=== PATIENT | male | born 1955 | race Caucasian/White ===

== ENCOUNTER 2024-04-19 09:42 | Observation (INO) ==
--- NOTE | 2024-04-19 10:33 | Emergency Department Note ---
Impression & Plan Complication of Farias catheter, Hematuria, Acute UTI (urinary tract infection) ED Provider Note ED Provider Note NAME: TAWANA COX AGE:69 SEX: Male : 1955 ARRIVES VIA: Private vehicle INFORMANT: Patient ED PROVIDER(s): Yajaira Mendoza DO CHIEF COMPLAINT: Clogged Farias catheter, blood clots HPI: This is a 69-year-old male presents emergency department due to concern for a clogged Farias catheter and blood clots. Patient is had an indwelling catheter since the beginning of the week that was placed initially for acute urinary retention. He did present last night in the emergency department due to concern for passage of a clot followed by gross hematuria noted in the bag. Catheter last night was able to be flushed and aspirated with ease, he drained after irrigation and a light pink color. No further passage of clots. He states overnight while wearing the larger catheter bag he did notice a few clots however urine otherwise was only pink-tinged. He states this morning around 6 AM he changed to the leg bag and since that time has had gross hematuria, further clots, and he is now no longer draining and is developing a sense of fullness in his lower abdomen. No fevers or chills, no nausea or vomiting. Patient does not use any antiplatelet or anticoagulation medication. Patient is frustrated as he has been here several times this week and is not scheduled to see urology until Monday. PAST MEDICAL HISTORY:See Below PAST SURGICAL HISTORY:See Below FAMILY HISTORY:See Below SOCIAL HISTORY:See Below HOME MEDICATIONS:See Below ALLERGIES:See Below VITALS:See Below PHYSICAL EXAMINATION: GENERAL: alert, well appearing, well nourished, no distress, non-toxic EYE EXAM: normal conjunctiva, PERRL and EOM's grossly intact LUNGS: Clear to auscultation. Normal chest wall mechanics, no w/r/r HEART: no murmurs, S1 normal and S2 normal ABDOMEN: abdomen soft, non-tender, normo-active bowel sounds, no masses, no rebound or guarding. SKIN: no rashes, petechiae, orbruising UPPER EXTREMITIES: upper extremities are grossly normal. FROM, nml pulses b/l. LOWER EXTREMITIES: No pitting edema. FROM, nml pulses b/l. NEURO EXAM: Normal sensorium, cranial nerves II-XII grossly intact, normal speech, no facial droop,nogross weakness of arms, no gross weakness of legs. Gross sensation intact. No ataxia. Vital Signs: reviewed and remarkable Differential Diagnosis: Catheter malfunction, obstruction, dehydration, urinary tract infection, urinary retention, acute kidney injury, as well as other pathologies. MEDICAL DECISION MAKING: This is a 69-year male presents emergency department for the fourth time this week due to concern for hematuria and complications related to his Farias catheter. He was afebrile vital signs stable. Patient catheter unable to be flushed and aspirated, so a new Farias catheter was placed. Patient continued to complain of lower abdominal pain and had leakage of blood and blood clots out around the Farias catheter. We did attempt to irrigate this at bedside however had minimal return of the fluid. Bedside ultrasound performed by me showed a large amount of debris which I suspect is blood and clots noted in the bladder, the balloon was seen and appears in normal position. Patient did have labs last night which were reassuring. I did contact urology who recommended repeat imaging. Repeat labs drawn and sent after patient had a vagal episode and had become hypotensive following this exchange. His pressure came up quickly and he continued to be well-appearing. Repeat labs show mild drop in hemoglobin compared to yesterday, no evidence of DEMARIO. Preliminary urine culture from urine that was sent last night did show gram-negative bacilli, patient was given 1 dose of oral ciprofloxacin. Patient sent for repeat CAT scan of the abdomen and pelvis following discussion with urology. They were updated when this was read as well as updated on the labs. They did come and see the patient at bedside and plan to take the patient to the OR for additional intervention. They did ask for medicine to admit him as he will need to be observed overnight in the hospital. Case discussed with the hospitalist team for additional evaluation and management. Consultation(s): 1240: Discussed with Yamilet Yan NP, with urology. They would like repeat imaging. 1528: Discussed with Dr. Sierra, [facility] hospitalist team. ER Treatment Provided: See below 1150: I reentered the room to recheck the status of the patient's Farias catheter drainage and update him on the use of Cipro and patient was hypotensive complaining of dizziness. I recycled the blood pressure and he was still hypotensive. I asked the nurse to start an IV and I spiked a liter bag of IV fluids. Diagnostics Interpreted By Me: -Cardiac Monitoring: An order was placed for continuous cardiac monitoring. The monitor shows a rate of 70 with normal sinus rhythm. -Laboratory studies: As stated above and show below. -IMaging: CT A/P: Debris noted in the bladder, catheter present, no hydro Triage Nursing Note Reviewed Prior/Outside Records Reviewed -prior CT imaging reviewed Past Med/Surg History Problem List (Updated 04/19/24 @ 17:56 by Yajaira Mendoza, ) Acute UTI (urinary tract infection) (Acute) Indwelling Farias catheter present (Acute) Hematuria (Acute) Complication of Farias catheter (Acute) Hypertension (Acute) Acute retention of urine (Acute) Arm pain Arm weakness Tinnitus Hearing loss Medical History Ankle fracture Surgical History S/P tonsillectomy H/O umbilical hernia repair S/P appendectomy S/P hernia repair Family History Mother No pertinent family history Father No pertinent family history Social History Smoking Status: Unknown if ever smoked Tobacco Type: Cigarettes Preferred Language: Romanian Feels Safe at Home: Yes Allergies Allergies Allergy/AdvReac Type Severity Reaction Status Date / Time amoxicillin [From Augmentin] AdvReac PATIENT Verified 04/19/24 16:05 GETS C-DIFF aspirin AdvReac EARS RING Verified 04/19/24 16:05 clavulanic acid AdvReac PATIENT Verified 04/19/24 16:05 [From Augmentin] GETS C-DIFF NSAIDS (Non-Steroidal AdvReac EARS RING Verified 04/19/24 16:05 Anti-Inflamma DIURETICS AdvReac EARS RING Uncoded 04/19/24 16:05 HISTAMINES AdvReac EARS RING Uncoded 04/19/24 16:05 Home Meds Home Medications Medication Instructions Recorded Confirmed Saccharomyces boulardii 250 mg 250 mg PO QAM 05/17/21 04/19/24 capsule (Daily Probiotic (S. boulardii)) atenolol 25 mg tablet 25 mg PO QAM 05/17/21 04/19/24 cholecalciferol (vitamin D3) 25 25 mcg PO QAM 05/17/21 04/19/24 mcg (1,000 unit) capsule ketoconazole 2 % topical cream 1 applic topical BID PRN FLARE 05/17/21 04/19/24 losartan 100 mg tablet (Cozaar) 100 mg PO QAM 05/17/21 04/19/24 Aged Garlic 2 cap PO BID 04/19/24 04/19/24 alprazolam 1 mg tablet 1 mg PO TID PRN Anxiety 04/19/24 04/19/24 magnesium 250 mg tablet 250 mg PO QAM 04/19/24 04/19/24 omega 4-zce-gzp-fish oil 1,000 mg 1 cap PO QAM 04/19/24 04/19/24 (120 mg-180 mg) capsule (Fish Oil) zinc gluconate 50 mg tablet 50 mg PO QAM 04/19/24 04/19/24 Results & Data (ED) Vital Signs Vital Signs - 24 hr 04/19/24 09:50 04/19/24 12:18 04/19/24 13:03 Temperature 36.3 C L Temperature Source Oral Pulse Rate 69 56 L Pulse Rate [Apical] 82 Pulse Rhythm Regular Pulse Strength Normal Respiratory Rate 20 16 Respiratory Effort / Characteristics Non-Labored Spontaneous Respiratory Depth Normal Respiratory Pattern Regular Blood Pressure 107/73 Blood Pressure [Left Arm] 111/71 Blood Pressure Mean 84 Blood Pressure Mean [Left Arm] 84 Blood Pressure Position [Left Arm] Pulse Oximetry 99 95 Oxygen Delivery Method Room Air Sepsis Recent Fever Within 48 Hours No Sepsis New/Unexplained Change in Mental Status N/A Sepsis Action Taken by Nursing No Action Required 04/19/24 13:51 04/19/24 15:42 04/19/24 16:47 Temperature Temperature Source Pulse Rate 62 Pulse Rate [Apical] 66 58 L Pulse Rhythm Pulse Strength Respiratory Rate 14 18 16 Respiratory Effort / Characteristics Respiratory Depth Respiratory Pattern Blood Pressure 139/85 Blood Pressure [Left Arm] 114/71 127/68 Blood Pressure Mean Blood Pressure Mean [Left Arm] 85 87 Blood Pressure Position [Left Arm] Pulse Oximetry 99 100 100 Oxygen Delivery Method Room Air Sepsis Recent Fever Within 48 Hours Sepsis New/Unexplained Change in Mental Status Sepsis Action Taken by Nursing 04/19/24 16:56 Temperature 36.5 C Temperature Source Oral Pulse Rate Pulse Rate [Apical] Pulse Rhythm Pulse Strength Respiratory Rate 16 Respiratory Effort / Characteristics Non-Labored Spontaneous Respiratory Depth Normal Respiratory Pattern Regular Blood Pressure Blood Pressure [Left Arm] 144/97 H Blood Pressure Mean Blood Pressure Mean [Left Arm] 112 Blood Pressure Position [Left Arm] Lying Pulse Oximetry 100 Oxygen Delivery Method Room Air Sepsis Recent Fever Within 48 Hours Sepsis New/Unexplained Change in Mental Status Sepsis Action Taken by Nursing Laboratory Data 04/19/24 12:30 04/19/24 12:30 Lab Results 04/19/24 Range/Units 12:30 WBC 12.65 H (4.8-10.8) K/ul RBC 3.89 L (4.70-6.10) M/uL Hgb 13.1 L D (14.0-18.0) g/dl Hct 36.2 L (42.0-52.0) % MCV 93.1 (80.0-100.0) fL MCH 33.7 (25.0-34.0) pg MCHC 36.2 H (32.0-36.0) g/dL RDW Std Deviation 42.2 (36.4-46.3) fL RDW Coeff of Latasha 12.3 (11.5-14.5) % Plt Count 268 (130-400) K/uL MPV 8.6 L (9.4-12.4) fL Immature Gran % (Auto) 0.5 % Neut % (Auto) 89.4 % Lymph % (Auto) 5.3 % [place] % (Auto) 4.6 % Eos % (Auto) 0.0 % Baso % (Auto) 0.2 % Neut # (Auto) 11.32 H (1.40-6.50) K/uL Lymph # (Auto) 0.67 L (1.20-3.40) K/uL [place] # (Auto) 0.58 (0.11-0.59) K/uL Eos # (Auto) 0.00 (0.00-0.50) K/uL Baso # (Auto) 0.02 (0.00-0.20) K/uL Immature Gran # (Auto) 0.06 (0.01-0.20) K/uL Sodium 126 L (136-145) mmol/L Potassium 4.9 (3.5-5.1) mmol/L Chloride 96 L (98-107) mmol/L Carbon Dioxide 24 (21-32) mmol/L Anion Gap 6 (3-11) BUN 10 (6-23) mg/dl Creatinine 1.00 (0.6-1.4) mg/dl Est Cr Clr Drug Dosing 73.9 ml/min eGFR 81.98 BUN/Creatinine Ratio 10.0 (10-20) Glucose 129 H (70-99(Fasting)) mg/dl Calcium 8.6 (8.6-10.3) mg/dl Magnesium 1.6 L (1.7-2.4) mg/dl Total Bilirubin 1.1 H (0.2-1.0) mg/dl AST 15 (13-39) U/L ALT 17 (7-52) U/L Alkaline Phosphatase 47 (34-104) U/L Total Protein 6.2 (6.0-8.3) gm/dl Albumin 3.8 (3.4-5.0) gm/dl Globulin 2.4 L (2.5-4.0) gm/dl Albumin/Globulin Ratio 1.6 (0.9-2) Administered Medications Discontinued Medications Ciprofloxacin (Ciprofloxacin 500 Mg Tab) 500 mg PO NOW STA; Protocol Stop: 04/19/24 10:35 Last Admin: 04/19/24 11:48 Dose: 500 mg Documented By: ESTEBAN Sodium Chloride (Nss) 1,000 mls @ 999 mls/hr IV .Q1H1M ONE Stop: 04/19/24 13:12 Last Infusion: 04/19/24 13:33 Dose: Infused Documented By: Admin: 04/19/24 12:29 Dose: 999 mls/hr Documented By: ESTEBAN Acetaminophen (Ofirmev) 1,000 mg in 100 mls @ 400 mls/hr IV NOW STA Stop: 04/19/24 14:48 Last Infusion: 04/19/24 15:08 Dose: Infused Documented By: Admin: 04/19/24 14:44 Dose: 400 mls/hr Documented By: ESTEBAN Imaging Data Radiologist's Impression: Abdomen/Pelvis CT 04/19/24 12:[address] WITHOUT CONTRAST CT DOSE: 1293.98 mGy.cm HISTORY: Acute hematuria debris/clots in bladder TECHNIQUE: Multiaxial CT images of the abdomen and pelvis were performed without contrast. A dose lowering technique was utilized adhering to the principles of ALARA. COMPARISON STUDY: 04/14/2024 FINDINGS: Clear lung bases. No free air. The unenhanced spleen is unremarkable and unchanged 11 mm lobular nodular focus on image 105 series 3. Unremarkable pancreas and adrenal glands. Cholelithiasis. Unremarkable liver. Bilateral perinephric stranding with resolution of the hydronephrosis. There are a few nonobstructing calculi noted bilaterally measuring up to approximately 3 mm. No ureteral calculi identified. Distended urinary bladder with Farias catheter in place. Heterogeneous hyperdense debris fills the urinary bladder lumen and there is also a small amount of nondependent air. Marked prostatomegaly. Atherosclerosis of the aorta. No lymphadenopathy. The bladder measures up to 14 cm in length. No bowel obstruction or bowel wall thickening. Colonic diverticulosis. The appendix is reportedly surgically absent. No acute fracture. IMPRESSION: 1. Farias catheter is noted within the distended hemorrhagic debris filled urinary bladder. Associated prostatomegaly. 2. Nonobstructing bilateral nephrolithiasis. No hydronephrosis. 3. No bowel obstruction or bowel wall thickening. 4. Cholelithiasis. ACT 112: Negative or not required by law. The above report was generated using voice recognition software. It may contain grammatical, syntax or spelling errors. Electronically signed by: Easton Murrieta M.D. 04/19/2024 1:57 PM Discharge Plan Visit Data Chief Complaint: Hematuria Stated Complaint: CATHETER ISSUES, CLOTS, HEMATURIA ED Provider: Yajaira Mendoza Discharge Problem: Complication of Farias catheter, Hematuria, Acute UTI (urinary tract infection) Discharge Instructions Interventions: ED Discharge Assessment Last Done: 04/19/24 16:47 Forms Stand Alone Forms: [facility] Prescriptions Prescriptions: No Action atenolol 25 mg tablet 25 mg PO QAM losartan [Cozaar] 100 mg tablet 100 mg PO QAM ketoconazole 2 % cream 1 applic topical BID PRN (Reason: FLARE) Saccharomyces boulardii [Daily Probiotic (S. boulardii)] 250 mg capsule 250 mg PO QAM cholecalciferol (vitamin D3) 25 mcg (1,000 unit) capsule 25 mcg PO QAM alprazolam 1 mg tablet 1 mg PO TID PRN (Reason: Anxiety) omega 6-wum-ufs-fish oil [Fish Oil] 1,000 (120-180) mg Capsule 1 cap PO QAM zinc gluconate 50 mg Tablet 50 mg PO QAM magnesium 250 mg Tablet 250 mg PO QAM Aged Garlic 2 cap PO BID Referrals Referrals: Luis Freire [Primary Care Provider] -
[2024-04-19] MEDS: CIPROFLOXACIN 500 MG TAB PO STA (11:48)
[2024-04-19] MEDS: SODIUM CHLORIDE 0.9% 1,000 ML IV ONE (12:29)
[2024-04-19 12:46] LABS: Basophils # (auto) 0.02 K/uL (0.00-0.20); Basophils % (auto) 0.2 %; Hematocrit (blood only) 36.2 % (42.0-52.0); Hemoglobin 13.1 g/dl (14.0-18.0); Immature Granulocytes # (auto) 0.06 K/uL (0.01-0.20); Immature Granulocytes % (auto) 0.5 %; Lymphocytes # (auto) 0.67 K/uL (1.20-3.40); Lymphocytes % (auto) 5.3 %; Mean Corpuscular Hemoglobin 33.7 pg (25.0-34.0); Mean Corpuscular Hgb Conc 36.2 g/dL (32.0-36.0); Mean Corpuscular Volume 93.1 fL (80.0-100.0); Mean Platelet Volume 8.6 fL (9.4-12.4); Monocytes # (auto) 0.58 K/uL (0.11-0.59); Monocytes % (auto) 4.6 %; Neutrophils # (auto) 11.32 K/uL (1.40-6.50); Neutrophils % (auto) 89.4 %; Platelet Count 268 K/uL (130-400); RDW Coefficient of Variation 12.3 % (11.5-14.5); RDW Standard Deviation 42.2 fL (36.4-46.3); Red Blood Count 3.89 M/uL (4.70-6.10); White Blood Count 12.65 K/ul (4.8-10.8)
[2024-04-19 13:05] LABS: Albumin Globulin Ratio 1.6 (0.9-2); Albumin Level 3.8 gm/dl (3.4-5.0); Bilirubin,Total 1.1 mg/dl (0.2-1.0); Calcium 8.6 mg/dl (8.6-10.3); Creatinine Clr Calc Pharmacy 73.9 ml/min; Globulin 2.4 gm/dl (2.5-4.0); Potassium 4.9 mmol/L (3.5-5.1); Total Protein 6.2 gm/dl (6.0-8.3)
--- NOTE | 2024-04-19 13:58 | CT Scan Report ---
ABDOMEN AND PELVIS CT WITHOUT CONTRAST CT DOSE: 1293.98 mGy.cm HISTORY: Acute hematuria debris/clots in bladder TECHNIQUE: Multiaxial CT images of the abdomen and pelvis were performed without contrast. A dose lo wering technique was utilized adhering to the principles of ALARA. COMPARISON STUDY: 04/14/2024 FINDINGS: Clear lung bases. No free air. The unenhanced spleen is unremarkable and unchanged 11 mm lo bular nodular focus on image 105 series 3. Unremarkable pancreas and adrenal glands. Cholelithiasis. Unremarkable liver. Bilateral perinephric stranding with resolution of the hydronephrosis. There are a few nonobstructing calculi noted bilaterally measuring up to approximately 3 mm. No ureteral calculi identified. Disten ded urinary bladder with Farias catheter in place. Heterogeneous hyperdense debris fills the urinary b ladder lumen and there is also a small amount of nondependent air. Marked prostatomegaly. Atheroscler osis of the aorta. No lymphadenopathy. The bladder measures up to 14 cm in length. No bowel obstruction or bowel wall thickening. Colonic diverticulosis. The appendix is reportedly kerry gically absent. No acute fracture. IMPRESSION: 1. Farias catheter is noted within the distended hemorrhagic debris filled urinary bladder. Associated prostatomegaly. 2. Nonobstructing bilateral nephrolithiasis. No hydronephrosis. 3. No bowel obstruction or bowel wall thickening. 4. Cholelithiasis. ACT 112: Negative or not required by law. The above report was generated using voice recognition software. It may contain grammatical, syntax o r spelling errors. Electronically signed by: Easton Murrieta M.D. 04/19/2024 1:57 PM
[2024-04-19] MEDS: ACETAMINOPHEN 1,000 MG/100 ML VIAL IV STA (14:44)
--- NOTE | 2024-04-19 15:44 | Urology Consultation ---
Date of Consultation April 19, 2024 Assessment & Plan (1) Hematuria: (2) Indwelling Farias catheter present: (3) Acute retention of urine: Plan 69yo male who was seen in the ED this week for urinary retention and had a Farias catheter placed. He has since developed hematuria and was seen in the ED last night and the catheter was flushed. He returned to the ED today due to concerns of catheter obstruction. Afebrile and hemodynamically stable. Labs showing a white count of 12.65, hemoglobin 13.1, and creatinine 1.0. Urine culture from 04/18 is preliminary gram-negative bacilli. Farias intact w/hematuria and clot. We reviewed his CT findings today showing a Farias catheter within a distended hemorrhagic debris-filled urinary bladder and prostatomegaly. We discussed recommendation for OR today for cystoscopy, clot evacuation, and possible fulguration - He is agreeable. Risks and benefits to be reviewed with patient by Dr. Leigh. Patient received oral ciprofloxacin. Keep NPO. Urology to follow. Attending note: Patient independently assessed, examined, interviewed, and evaluated. Agree with note as above. Patient's vitals and labs were all reviewed. Pertinent values in the HPI and plan section. Imaging was reviewed interpreted by myself. Agree with read. Vitals were reviewed. Discussed findings extensively with patient and family. Reviewed with nurse practitioner as well as consulting physicians/team. Patient's complicated medical and surgical history was reviewed and summarized above. Patient's surgical, medical, social, and family history were all reviewed with pertinent values as above. Discussed patient's current diagnosis as well as concerns and issues. Reviewed different options moving forward. Discussed potential risks and benefits as well as possible options and concerns. Reviewed potential surgical options and interventions. Discussed potential issues and concerns related to intervention. Risk and benefits were discussed extensively with patient and any available family. Discussed potential risks related to anesthesia. Discussed risks of bleeding infection and injury. Patient's imaging were thoroughly reviewed by myself patient has a large amount of clot within the bladder. Has significant prostate enlargement. No sign of active bleeding however large amount of clot with likely urine above it. The catheter did appear to be in the bladder however did not appear to be draining well. With the large amount of debris and clot material would likely not be amendable to bedside evacuation also concern for active bleeding in the prostate or in the bladder. Reviewed extensively different options. Discussed risk and benefits. Discussed concerns and issues. Discussed possible reaction to antibiotics and to anesthesia. Discussed risk with patient's known medical history. Discussed risk specifically related to the anesthesia. Reviewed options moving forward. Risks and benefits discussed at length for procedure. These include bleeding, infection, injury to surrounding tissues or organs, and risks associated with anesthesia. Patient states understanding and agrees to proceed. Will sign consent and schedule. Plan for cystoscopy with clot evacuation possible fulguration History of Present Illness History of Present Illness This is a 69-year-old male who presented to the emergency department today due to concern for catheter obstruction and hematuria. Patient was seen in the emergency department earlier this week for urinary retention. CT abdomen pelvis at that time noted an enlarged prostate with a markedly distended bladder and mild bilateral hydronephrosis to the level of the bladder likely secondary to outlet obstruction. A Farias catheter was placed for management of urinary retention and he was discharged home. He has been seen in the 3 additional times this week due to catheter discomfort and hematuria. He did present last seen in the emergency department for hematuria. At that time the catheter was flushed and aspirated with ease and he was discharged home. He returned to the ED today due to catheter obstruction and lower abdominal pain. On arrival, he is afebrile and hemodynamically stable. Labs showing a white count of 12.65, hemoglobin 13.1, and creatinine 1.0. Urine culture from 04/18 is preliminary gram-negative bacilli. Attempts were made to flush the catheter however this was unsuccessful. Patient continued of lower abdominal pain and bladder pressure. He underwent repeat imaging. CT abdomen pelvis today notable for a Farias catheter within a distended hemorrhagic debris-filled urinary bladder, prostatomegaly, nonobstructing bilateral stones, no hydronephrosis. Patient was seen at bedside today. Awake, resting in bed on arrival. No acute distress. Farias intact with hematuria and leakage around the catheter. Has suprapubic tenderness. No f/c/n/v. Received oral Cipro. He is not on anticoagulation. Allergies Allergy/AdvReac Type Severity Reaction Status Date / Time amoxicillin [From Augmentin] AdvReac PATIENT Verified 04/19/24 16:05 GETS C-DIFF aspirin AdvReac EARS RING Verified 04/19/24 16:05 clavulanic acid AdvReac PATIENT Verified 04/19/24 16:05 [From Augmentin] GETS C-DIFF NSAIDS (Non-Steroidal AdvReac EARS RING Verified 04/19/24 16:05 Anti-Inflamma DIURETICS AdvReac EARS RING Uncoded 04/19/24 16:05 HISTAMINES AdvReac EARS RING Uncoded 04/19/24 16:05 Home Medications Medication Instructions Recorded Confirmed Type Saccharomyces boulardii 250 mg 250 mg PO QAM 05/17/21 04/19/24 History capsule (Daily Probiotic (S. boulardii)) atenolol 25 mg tablet 25 mg PO QAM 05/17/21 04/19/24 History cholecalciferol (vitamin D3) 25 25 mcg PO QAM 05/17/21 04/19/24 History mcg (1,000 unit) capsule ketoconazole 2 % topical cream 1 applic topical BID PRN FLARE 05/17/21 04/19/24 History losartan 100 mg tablet (Cozaar) 100 mg PO QAM 05/17/21 04/19/24 History Aged Garlic 2 cap PO BID 04/19/24 04/19/24 History alprazolam 1 mg tablet 1 mg PO TID PRN Anxiety 04/19/24 04/19/24 History magnesium 250 mg tablet 250 mg PO QAM 04/19/24 04/19/24 History omega 7-nih-eob-fish oil 1,000 mg 1 cap PO QAM 04/19/24 04/19/24 History (120 mg-180 mg) capsule (Fish Oil) zinc gluconate 50 mg tablet 50 mg PO QAM 04/19/24 04/19/24 History Patient History Medical History Ankle fracture Surgical History S/P tonsillectomy H/O umbilical hernia repair S/P appendectomy S/P hernia repair Family History Mother No pertinent family history Father No pertinent family history Social History Smoking Status: Unknown if ever smoked Tobacco Type: Cigarettes Preferred Language: Armenian Feels Safe at Home: Yes Review of Systems Review of Systems: All systems reviewed & are unremarkable except as noted in HPI & below Physical Exam Constitutional: no acute distress Respiratory: no respiratory distress and no labored breathing Gastrointestinal (Abdomen): Suprapubic tenderness with palpation. Musculoskeletal: Head/Neck/Chest: normocephalic Skin: No visible rashes or lesions to exposed skin areas Neurologic: moves all extremities and awake Psychiatric: A+Ox3, euthymic affect Genitourinary: Farias intact w/hematuria Results & Data Vital Signs (Past 12 Hours) Vital Signs Temp Pulse Pulse Resp BP BP Pulse Ox 04/19/24 13:51 66 14 114/71 99 04/19/24 13:03 82 16 111/71 95 04/19/24 12:18 56 L 04/19/24 09:50 36.3 C L 69 20 107/73 99 O2 Del Method 04/19/24 13:51 04/19/24 13:03 04/19/24 12:18 04/19/24 09:50 Room Air PG Care Time/CCT Total # of Minutes Spent Total Time Spent with Patient: Total time spent is greater than 50% in coordination of care (as documented) at patient's floor/unit and/or counseling patient: Coding Level of Care Code 07062 INT INP/OBS CARE 3/75MIN Diagnoses Hematuria R31.9 Indwelling Farias catheter present Z97.8 Acute retention of urine R33.8
--- NOTE | 2024-04-19 16:07 | History & Physical Report ---
Date of Service April 19, 2024 Assessment & Plan (1) Hematuria: Plan: Occurred after Farias catheter placement. Infection +/- traumatic. Consult urology for clot evaluation, NPO pending surgical intervention Trend hemoglobin (2) Acute UTI (urinary tract infection): Plan: Ceftriaxone 2g IV - history of severe 6 month c. diff therefore will start vancomycin 125mg PO QAM for prophylaxis which she should continue for the duration of antibiotics and 7 days afterwards Follow up urine culture (3) Acute retention of urine: (4) Complication of Farias catheter: (5) Hyponatremia: Plan: Normal saline @125ml/hr overnight. If not correcting consider urine Na/osm if urine becomes more clear (6) Hypomagnesemia: Plan: Magnesium level 1.6 on admission (7) Acute blood loss anemia: Plan HTN - continue atenolol and losartan Anxiety - continue Xanax, he takes this relatively regularly 2-3 times a day and every morning VTE prophylaxis - SCDs Diet - NPO pending surgery Disposition - admit to PCU Admission and Anticipated Discharge Date Admission Date: April 19, 2024 History of Present Illness Chief Complaint: Blood clots in catheter Primary Care Provider: Luis Tani Adams is a 69-year-old male who presents to the ER due to blood clots in his catheter and therefore unable to pass urine. Initial incident occurred on April 14 when he was unable to pass urine and was noted to be in urine retention in the emergency room confirmed on CT. A Farias catheter was placed and urinalysis did not appear infected at that time. He was discharged from the emergency room. He returned on April 16 with urine leakage around the Farias catheter. This appeared to be from the placement of the sticker of the leg bag causing his penis to be pulled significantly to the left and irritating his urethra. The Farias was otherwise draining well and was not replaced. He returned 2 days later on April 18 with hematuria noted in his Farias catheter bag in addition to passage of a clots. Urine was sent for culture but the Farias catheter appeared to be draining well and he was not anemic therefore he was discharged from the emergency room. No antibiotics were given at this time vasquez micky culture now appears to be growing gram-negative bacilli. He returns today due to increased amount of clots and lower abdominal pain with inability to pass urine through the Farias catheter. He notes having bilateral flank pain for the last couple weeks but appeared much better after the Farias catheter was inserted the first time, however this pain has been gradually returning since. He denies any fever, chills, dysuria. No NSAID use. He denies any significant prostate symptoms prior to urine retention episode requiring his Farias catheter. He took all his morning medications today. Allergies Allergy/AdvReac Type Severity Reaction Status Date / Time amoxicillin [From Augmentin] AdvReac PATIENT Verified 04/19/24 16:05 GETS C-DIFF aspirin AdvReac EARS RING Verified 04/19/24 16:05 clavulanic acid AdvReac PATIENT Verified 04/19/24 16:05 [From Augmentin] GETS C-DIFF NSAIDS (Non-Steroidal AdvReac EARS RING Verified 04/19/24 16:05 Anti-Inflamma DIURETICS AdvReac EARS RING Uncoded 04/19/24 16:05 HISTAMINES AdvReac EARS RING Uncoded 04/19/24 16:05 Home Medications Medication Instructions Recorded Confirmed Type Saccharomyces boulardii 250 mg 250 mg PO QAM 05/17/21 04/19/24 History capsule (Daily Probiotic (S. boulardii)) atenolol 25 mg tablet 25 mg PO QAM 05/17/21 04/19/24 History cholecalciferol (vitamin D3) 25 25 mcg PO QAM 05/17/21 04/19/24 History mcg (1,000 unit) capsule ketoconazole 2 % topical cream 1 applic topical BID PRN FLARE 05/17/21 04/19/24 History losartan 100 mg tablet (Cozaar) 100 mg PO QAM 05/17/21 04/19/24 History Aged Garlic 2 cap PO BID 04/19/24 04/19/24 History alprazolam 1 mg tablet 1 mg PO TID PRN Anxiety 04/19/24 04/19/24 History magnesium 250 mg tablet 250 mg PO QAM 04/19/24 04/19/24 History omega 2-uyb-gld-fish oil 1,000 mg 1 cap PO QAM 04/19/24 04/19/24 History (120 mg-180 mg) capsule (Fish Oil) zinc gluconate 50 mg tablet 50 mg PO QAM 04/19/24 04/19/24 History Past Med/Surg History Problem List (Updated 04/20/24 @ 00:34 by Edwardo Sierra MD) Acute blood loss anemia Hypomagnesemia Hyponatremia Acute UTI (urinary tract infection) (Acute) Indwelling Farias catheter present (Acute) Hematuria (Acute) Complication of Farias catheter (Acute) Hypertension (Acute) Acute retention of urine (Acute) Arm pain Arm weakness Tinnitus Hearing loss Medical History Ankle fracture Surgical History S/P tonsillectomy H/O umbilical hernia repair S/P appendectomy S/P hernia repair Family History Mother No pertinent family history Father No pertinent family history Social History Smoking Status: Never smoker Tobacco Type: Cigarettes Second Hand Exposure: No; Do You Dip or Chew Tobacco: No; Hx Alcohol Use: Yes Alcohol type: beer Hx Substance Use: No Preferred Language: Croatian Communication Ability: Effective Superintendent Ammunition Storage Required: No Beliefs That Will Affect Care: None Current Living Situation: Spouse and Parent Other Information That Helps Us Care for You: No Feels Safe at Home: Yes Safety Concerns: Feels Safe At This Time Assistive Devices: None Review of Systems Review of Systems: All systems reviewed & are unremarkable except as noted in HPI & below Physical Exam Constitutional: WD/WN, vitals as above Respiratory: normal respiratory effort, lungs clear to auscultation Cardiovascular: RRR, no murmur, no edema Gastrointestinal (Abdomen): normal bowel sounds, soft, nontender, no hepatosplenomegaly Skin: no rashes, warm and dry Neurologic: moves all extremities and awake; not confused Psychiatric: A+Ox3, euthymic affect Results & Data Results & Data Vital Signs (Past 12 Hours) Vital Signs Temp Pulse Pulse Resp BP BP Pulse Ox 04/19/24 15:42 58 L 18 127/68 100 04/19/24 13:51 66 14 114/71 99 04/19/24 13:03 82 16 111/71 95 04/19/24 12:18 56 L 04/19/24 09:50 36.3 C L 69 20 107/73 99 O2 Del Method 04/19/24 15:42 04/19/24 13:51 04/19/24 13:03 04/19/24 12:18 04/19/24 09:50 Room Air Laboratory Results Abnormal lab results 04/19/24 Range/Units 12:30 WBC 12.65 H (4.8-10.8) K/ul RBC 3.89 L (4.70-6.10) M/uL Hgb 13.1 L D (14.0-18.0) g/dl Hct 36.2 L (42.0-52.0) % MCHC 36.2 H (32.0-36.0) g/dL MPV 8.6 L (9.4-12.4) fL Neut # (Auto) 11.32 H (1.40-6.50) K/uL Lymph # (Auto) 0.67 L (1.20-3.40) K/uL Sodium 126 L (136-145) mmol/L Chloride 96 L (98-107) mmol/L Glucose 129 H (70-99(Fasting)) mg/dl Total Bilirubin 1.1 H (0.2-1.0) mg/dl Globulin 2.4 L (2.5-4.0) gm/dl Diagnostic Findings ABDOMEN AND PELVIS CT WITHOUT CONTRAST CT DOSE: 1293.98 mGy.cm HISTORY: Acute hematuria debris/clots in bladder TECHNIQUE: Multiaxial CT images of the abdomen and pelvis were performed without contrast. A dose lowering technique was utilized adhering to the principles of ALARA. COMPARISON STUDY: 04/14/2024 FINDINGS: Clear lung bases. No free air. The unenhanced spleen is unremarkable and unchanged 11 mm lobular nodular focus on image 105 series 3. Unremarkable pancreas and adrenal glands. Cholelithiasis. Unremarkable liver. Bilateral perinephric stranding with resolution of the hydronephrosis. There are a few nonobstructing calculi noted bilaterally measuring up to approximately 3 mm. No ureteral calculi identified. Distended urinary bladder with Farias catheter in place. Heterogeneous hyperdense debris fills the urinary bladder lumen and there is also a small amount of nondependent air. Marked prostatomegaly. Atherosclerosis of the aorta. No lymphadenopathy. The bladder measures up to 14 cm in length. No bowel obstruction or bowel wall thickening. Colonic diverticulosis. The appendix is reportedly surgically absent. No acute fracture. IMPRESSION: 1. Farias catheter is noted within the distended hemorrhagic debris filled urinary bladder. Associated prostatomegaly. 2. Nonobstructing bilateral nephrolithiasis. No hydronephrosis. 3. No bowel obstruction or bowel wall thickening. 4. Cholelithiasis. Medications Administered ER medications given: Ciprofloxacin 500 mg p.o. Normal saline 1 L bolus Acetaminophen 1000 mg IV ECG Rate (beats per minute): 58 Rhythm: sinus bradycardia Findings: no acute ischemic change Comparison ECG Date: no prior available Code Status & VTE Plan Code Status Full VTE Prophylaxis Plan VTE Prophylaxis will be ordered: Yes PG Care Time/CCT Total # of Minutes Spent Total Time Spent with Patient: Total time spent is greater than 50% in coordination of care (as documented) at patient's floor/unit and/or counseling patient: Coding Level of Care Code 35201 INT INP/OBS CARE 3/75MIN Diagnoses Gross hematuria R31.0 Hematuria type: gross Acute UTI (urinary tract infection) N39.0 Acute retention of urine R33.8 Complication of Farias catheter T83.9XXA Hyponatremia E87.1 Hypomagnesemia E83.42 Acute blood loss anemia D62 (1) Hematuria Hematuria type: gross Qualified Code(s): R31.0 - Gross hematuria
[2024-04-19] MEDS ORDERED: fentaNYL citrate PF 100 MCG/2 ML VIAL ONE ×2 (17:05→18:07)
[2024-04-19 17:08] LABS: Magnesium 1.6 mg/dl (1.7-2.4)
--- NOTE | 2024-04-19 17:33 | Anesthesiology Consultation ---
Date of Service April 19, 2024 Assessment & Plan Chart Review Chart Review: Acceptable Risk for Surgery Consults Requested none History Surgery Operation Date: 04/19/24 15:50 Proposed Procedures p Cystoscopy, Clot Evacuation, Possible Fulguration - Sukhdev Leigh DO Height/Weight Height: 5 ft 7 in Weight: 85.5 kg Allergies Allergy/AdvReac Type Severity Reaction Status Date / Time amoxicillin [From Augmentin] AdvReac PATIENT Verified 04/19/24 16:05 GETS C-DIFF aspirin AdvReac EARS RING Verified 04/19/24 16:05 clavulanic acid AdvReac PATIENT Verified 04/19/24 16:05 [From Augmentin] GETS C-DIFF NSAIDS (Non-Steroidal AdvReac EARS RING Verified 04/19/24 16:05 Anti-Inflamma DIURETICS AdvReac EARS RING Uncoded 04/19/24 16:05 HISTAMINES AdvReac EARS RING Uncoded 04/19/24 16:05 Medications Home Medications Medication Instructions Recorded Confirmed Last Taken Saccharomyces boulardii 250 mg 250 mg PO QAM 05/17/21 04/19/24 04/19/24 capsule (Daily Probiotic (S. boulardii)) atenolol 25 mg tablet 25 mg PO QAM 05/17/21 04/19/24 04/19/24 cholecalciferol (vitamin D3) 25 25 mcg PO QAM 05/17/21 04/19/24 04/19/24 mcg (1,000 unit) capsule ketoconazole 2 % topical cream 1 applic topical BID PRN FLARE 05/17/21 04/19/24 Unknown losartan 100 mg tablet (Cozaar) 100 mg PO QAM 05/17/21 04/19/24 04/19/24 Aged Garlic 2 cap PO BID 04/19/24 04/19/24 04/19/24 alprazolam 1 mg tablet 1 mg PO TID PRN Anxiety 04/19/24 04/19/24 04/19/24 AM magnesium 250 mg tablet 250 mg PO QAM 04/19/24 04/19/24 04/19/24 omega 3-btz-mys-fish oil 1,000 mg 1 cap PO QAM 04/19/24 04/19/24 04/19/24 (120 mg-180 mg) capsule (Fish Oil) zinc gluconate 50 mg tablet 50 mg PO QAM 04/19/24 04/19/24 04/19/24 NPO Date Last Intake of Fluids: 04/19/24 Time Last Intake of Fluids: 08:00 Date Last Intake of Solids: 04/18/24 Time Last Intake of Solids: 19:00 Past Medical History Medical History Ankle fracture Past Family History Family History Mother No pertinent family history Father No pertinent family history Past Surgical History Surgical History S/P tonsillectomy H/O umbilical hernia repair S/P appendectomy S/P hernia repair Social History Smoking Status: Unknown if ever smoked Physical Exam Vital Signs Last Vital Signs Temp 36.5 C 04/19/24 16:56 Pulse 62 04/19/24 16:47 Resp 16 04/19/24 16:56 BP 144/97 H 04/19/24 16:56 Pulse Ox 100 04/19/24 16:56 O2 Del Method Room Air 04/19/24 16:56 Testing Laboratory Results 04/19/24 12:30 04/19/24 12:30
[2024-04-19] MEDS ORDERED: LIDOCAINE 2% 2 ML VIAL/AMP(20MG/ML) INFIL ONE (17:59)
[2024-04-19] MEDS ORDERED: ePHEDrine sulfate 50 MG/5 ML SYR ONE (17:59)
[2024-04-19] MEDS ORDERED: PROPOFOL IV EMULSION 10 MG/ML 20 ML VIAL IV ONE (17:59)
[2024-04-19] MEDS ORDERED: ONDANSETRON INJ 2 MG/ML 2 ML VIAL ONE (17:59)
[2024-04-19] MEDS ORDERED: DEXAMETHASONE SOD INJ 4 MG/ML VIAL ONE (17:59)
[2024-04-19] MEDS ORDERED: PHENYLEPHRINE 100MCG/ML 10ML SYR IV ONE (17:59)
[2024-04-19] MEDS ORDERED: ePHEDrine sulfate 50 MG/ML AMP IV PRN (18:23)
[2024-04-19] MEDS ORDERED: ONDANSETRON INJ 2 MG/ML 2 ML VIAL IV PRN (18:23)
[2024-04-19] MEDS ORDERED: ATROPINE SULFATE 0.1 MG/ML 10ML SYR IV PRN (18:23)
[2024-04-19] MEDS ORDERED: HYDROmorphone INJ 2 MG/ML SYR/VIAL IV PRN (18:23)
[2024-04-19] MEDS ORDERED: PROMETHAZINE HCL 6.25 MG in SODIUM CHLORIDE 0.9% 50 ML IV PRN (18:23)
--- NOTE | 2024-04-19 18:40 | Operative Report ---
PG Post Operative Report Pre & Post Diagnosis Operation Date: 04/19/24 15:50 Pre-Op Diagnosis: Clots, Hematuria Post-Op Diagnosis: Clots, Hematuria I identified the patient and participated in the time-out.: Yes Procedure Operation Date: 04/19/24 15:50 Actual Procedures p Cystoscopy with extensive Clot Evacuation and multiple Fulguration of ulcers and bleeding varicosity of the prostate(Not Applicable) - Sukhdev Leigh, Surgeon Sukhdev Leigh, II, DO Real Estate Inspector None Estimated Blood Loss 10 Findings Consistent with Post-Op Diagnosis Extremely Large Prostate with obstruction. Very large median lobe with significant projection into the bladder. Severe edematous changes. Extremely large bleeding varicosities with areas of ulceration and injury throughout the prostatic urethra and the prostatic tissue. Significant inflammation around the bladder especially the bladder base Specimens None Drains 22Fr three-way catheter Anesthesia Type General Complications none Disposition Disposition: Recovery Room Indications Patient with obstruction due to prostate enlargement. Patient developed significant gross hematuria and clot retention with poor drainage from catheter. Risks and benefits discussed at length. Description of Procedure Patient was consented and brought back to the operating room. Patient was placed under anesthesia in the supine position and moved to the dorsal lithotomy position. Patient was prepped and draped in the regular sterile fashion. A time out was completed. A 30degree Cystoscope was placed into the bladder and the entire bladder was examined. Within the prostatic urethra there was noted to be numerous areas of bleeding. Near the [place]ver[place] there was a severely bleeding extremely large prostatic varicosity causing considerable issues. The scope was advanced into the bladder. A severe amount of blood clots was noted within the bladder lumen. Extensive irrigation and evacuation was necessary to clear majority of the large thick blood clot material. The entire bladder appeared to be filled and with the large amount of blood clots. And a greater than 1000 mL container of blood clots was able to be evacuated. Once the blood clots were able to be cleared visualization did drastically improved. The UO's were identified as well as the bladder neck, trigone, dome, and the other important landmarks. The prostatic urethra and large lobes/adenoma was assessed and the veru and bladder neck identified and area/size was assessed. The median lobe of the prostate was found to be severely enlarged causing considerable obstructive issues and with significant projection into the bladder. There was severe edematous changes throughout the lateral and median lobes there were very large prostatic varicosities coming from the bladder neck down along the prostatic urethra. Within the prostatic urethra especially near the [place] there was significant injury with major areas of considerable bleeding vessels. The resection scope was placed and the fine bipolar loop was selected. The fine bilobed polar loop was then used to fulgurate and ablate and control bleeding in the multiple areas of the prostatic urethra and the bladder neck. Numerous large prostatic varicosities were fulgurated the large injured/ulcerated area in the prostatic urethra near the Laverne was able to be fulgurated and cauterized. The bladder neck and anterior prostate also had numerous areas of significant bleeding. The bleeding areas did appear to all be venous. There was no large defect within the prostatic urethra the prostatic urethra was found to be severely obstructed secondary to the massive median lobe. Numerous areas of edematous changes were noticed on the bladder neck especially coming from the large median lobe. Any bleeding areas were fulgurated/cauterized and the entire area inspected. All bleeding was controlled. Additional blood clots had to be irrigated out from the base of the bladder especially underneath a large median lobe. There was some mild oozing and irritation along the bladder likely from overdistention of the bladder lining. Additionally there was some minor areas of bleeding on the prostatic urethra from some of the smaller varicosities. No significant or major bleeding was appreciated. No additional large blood clots. No masses or tumors were discovered within the bladder however the extremely large median lobe did have a irregular appearance largely due to the significant and severe edematous changes throughout the median lobe. The bladder was inspected a final time. The bladder was emptied and irrigated. All debris was removed. A wire was placed. The scope was removed with the bladder partially full. A 22 [place]i three-way catheter was placed over the wire and balloon elevated. This was easily irrigated. The patient was cleaned, aroused from anesthesia, and transferred to the pacu in stable condition having tolerated the procedure well with no complications. I was present and participated in all aspects of the procedure. The patient will be monitored in the PACU until transferred. The patient was attached to continuous bladder irrigation. Will plan to monitor output and drainage. Will likely be able to clamp continuous irrigation tomorrow after monitor overnight. I attest to the content of the Intraoperative Record and any orders documented therein. Any exceptions are noted below.
[2024-04-19] MEDS: fentaNYL citrate PF 100 MCG/2 ML VIAL IV PRN (19:00)
--- NOTE | 2024-04-19 19:19 | Anesthesiology Progress Note ---
Date of Service April 19, 2024 Anesthesia Post Procedure Vital Signs Vital Signs: Temp Pulse Pulse Resp BP BP BP 04/19/24 19:10 74 12 128/69 04/19/24 19:00 78 16 138/69 04/19/24 18:50 83 18 137/82 04/19/24 18:42 36.0 C L 84 16 132/75 04/19/24 16:56 36.5 C 16 144/97 H 04/19/24 16:47 62 16 139/85 04/19/24 15:42 58 L 18 127/68 04/19/24 13:51 66 14 114/71 04/19/24 13:03 82 16 111/71 04/19/24 12:18 56 L 04/19/24 09:50 36.3 C L 69 20 107/73 Pulse Ox O2 Del Method O2 Flow Rate 04/19/24 19:10 98 Room Air 04/19/24 19:00 100 Room Air 04/19/24 18:50 100 Oxymask 4 04/19/24 18:42 99 Oxymask 6 04/19/24 16:56 100 Room Air 04/19/24 16:47 100 Room Air 04/19/24 15:42 100 04/19/24 13:51 99 04/19/24 13:03 95 04/19/24 12:18 04/19/24 09:50 99 Room Air Pain Intensity Penis: Pain Intensity: 6 Transfer of Care Handoff Completed per policy Notes Mental Status: alert / awake / arousable and participated in evaluation Patient Amnestic to Procedure: Yes Nausea / Vomiting: adequately controlled Pain: adequately controlled Airway Patency, RR, SpO2: stable & adequate BP & HR: stable & adequate Hydration State: stable & adequate Anesthetic Complications: no major complications apparent
[2024-04-19] MEDS: CHERRY SYRUP 5 ML UDP PO SCH (21:10)
[2024-04-19] MEDS: SODIUM CHLORIDE 0.9% 1,000 ML IV SCH (21:10)
[2024-04-19] MEDS: VANCOMYCIN HCL 125 MG/2.5ML SOLN PO SCH (21:11)
[2024-04-19] MEDS ORDERED: ALPRAZolam 0.5 MG TABLET PO PRN (21:21)
[2024-04-19] MEDS: VANCOMYCIN HCL 125 MG/2.5ML SOLN PO STA (22:06)
[2024-04-19] MEDS: CHERRY SYRUP 5 ML UDP PO STA (22:06)
[2024-04-19] MEDS: cefTRIAXone SODIUM 2,000 MG/50 ML BAG IV STA (22:06)
[2024-04-19] MEDS: ALPRAZolam 0.5 MG TABLET PO STA (22:14)
[2024-04-19] MEDS: cefTRIAXone SODIUM 2,000 MG/50 ML BAG IV SCH (22:15)
[2024-04-19] MEDS: MAGNESIUM SULFATE / D5W 1 GM/100 ML BAG IV SCH (22:37)
[2024-04-19] MEDS: ACETAMINOPHEN 325 MG TAB PO PRN (22:41)
[2024-04-19 22:50] LABS: Hematocrit (blood only) 37.4 % (42.0-52.0); Hemoglobin 13.3 g/dl (14.0-18.0)
[2024-04-20 04:54] VITALS: RESP 18
[2024-04-20 06:31] LABS: Hemoglobin 12.8 g/dl (14.0-18.0); Immature Granulocytes # (auto) 0.02 K/uL (0.01-0.20); Immature Granulocytes % (auto) 0.4 %; Lymphocytes # (auto) 0.51 K/uL (1.20-3.40); Lymphocytes % (auto) 9.2 %; Mean Corpuscular Hemoglobin 32.7 pg (25.0-34.0); Mean Corpuscular Hgb Conc 34.6 g/dL (32.0-36.0); Mean Corpuscular Volume 94.4 fL (80.0-100.0); Mean Platelet Volume 8.6 fL (9.4-12.4); Monocytes # (auto) 0.35 K/uL (0.11-0.59); Monocytes % (auto) 6.3 %; Neutrophils # (auto) 4.64 K/uL (1.40-6.50); Neutrophils % (auto) 84.1 %; Platelet Count 292 K/uL (130-400); RDW Coefficient of Variation 12.5 % (11.5-14.5); RDW Standard Deviation 43.6 fL (36.4-46.3); Red Blood Count 3.92 M/uL (4.70-6.10); White Blood Count 5.52 K/ul (4.8-10.8)
[2024-04-20 07:06] LABS: BUN Creatinine Ratio 11.4 (10-20); Calcium 9.1 mg/dl (8.6-10.3); Creatinine Clr Calc Pharmacy 110.9 ml/min; Magnesium 2.1 mg/dl (1.7-2.4); Potassium 4.5 mmol/L (3.5-5.1)
[2024-04-20] MEDS: ALPRAZolam 0.5 MG TABLET PO SCH (08:12)
[2024-04-20] MEDS: ATENOLOL 25 MG TABLET PO SCH (08:13)
[2024-04-20] MEDS: MAGNESIUM OXIDE 400 MG TAB PO SCH (08:13)
[2024-04-20] MEDS: LOSARTAN POTASSIUM 50 MG TAB PO SCH (08:13)
[2024-04-20] MEDS: CHOLECALCIFEROL 25 MCG (1000 UNITS) TAB PO SCH (08:13)
[2024-04-20 12:00] VITALS: PULSE 71; TEMP 97.5; O2SAT 100
--- NOTE | 2024-04-20 12:03 | Urology Progress Note ---
Date of Service April 20, 2024 Assessment & Plan (1) Hematuria: (2) Indwelling Farias catheter present: (3) Acute retention of urine: Plan Patient postop day 1 status post clot evacuation fulguration of prostate and catheter placement. 69yo male with significant clot retention after catheter placement for urinary retention Afebrile and hemodynamically stable. Patient had severe enlargement of prostate with very large varicosities with multiple areas of bleeding. Had significant median lobe causing severe obstruction of the bladder neck with significant enlargement throughout the prostate. Patient had extensive clot evacuation. A three-way Farias catheter was placed at the end of the procedure. Has been on continuous bladder irrigation. Patient remains hemodynamically stable. Creatinine is 0.7. White count 5.52. Patient's vitals have remained stable with no significant fever. Discussed continued observation. Will plan to attempt clamping of CBI and monitoring of output. Will likely need to maintain catheter for approximately 1 week. Will likely ne ed to consider moving forward with intervention due to massive size of prostate causing considerable obstructive issues. Can discuss further as outpatient. Urine appears completely clear with no blood or clots. Have been walking and ambulating. Doing well. No increase in blood. Has been clear since stopping irrigation. Likely okay for discharge. Has followup on Monday Admission and Anticipated Discharge Date Admission Date: April 19, 2024 Subjective Postop from urologic surgery. The patient had undergone extensive clot evacuation and fulguration of numerous bleeding prostatic varicosities with findings of severe prostate enlargement and bladder outlet obstruction. Patient has been tolerating well, but is having some pain and discomfort. Having some abdominal discomfort and pains. Has tolerated catheter. Patient was placed on CBI. Has not had severe pain or uncontrollable pain. Patient has been ambulating. Has not had bowel movement or major change. No new nausea or vomiting. Had tolerated anesthesia without major problems Tolerated diet postoperatively. Review of Systems Review of Systems: All systems reviewed & are unremarkable except as noted in HPI & below Physical Exam Physical Exam: General: Alert in no acute distress. HEENT: Normocephalic Atraumatic. Inspection normal. Cranial Nerves 2-12 Grossly intact. Normal inspection of face. Normal inspection of neck. Psychologic: Normal affect. Respiratory: Nonlabored. No use of accessory muscles. No tachypnea or dyspnea. Cardiovascular: No tachycardia Skin: [place] and Dry. No rashes or visible lesions. Extremities/Lymphatics: No edema Abdomen: Appropriately tender. Mild distended. No rebound or guarding. : Farias in place. 22 Bengali three-way catheter Clear urine. Results & Data Vital Signs (Past 12 Hours) Vital Signs Temp Pulse Pulse Resp BP BP Pulse Ox 04/20/24 11:59 36.4 C L 71 18 155/88 H 100 04/20/24 07:15 75 04/20/24 07:15 36.8 C 101 H 18 137/83 97 04/20/24 03:24 36.5 C 72 18 133/72 99 04/20/24 00:03 36.7 C 82 20 130/76 99 O2 Del Method 04/20/24 11:59 Room Air 04/20/24 07:15 04/20/24 07:15 Room Air 04/20/24 03:24 Room Air 04/20/24 00:03 Room Air PG Care Time/CCT Total # of Minutes Spent Total Time Spent with Patient: Total time spent is greater than 50% in coordination of care (as documented) at patient's floor/unit and/or counseling patient: Coding Level of Care Code 70901 SUB INP/OBS CARE 3/50MIN Diagnoses Gross hematuria R31.0 Hematuria type: gross Indwelling Farias catheter present Z97.8 Acute retention of urine R33.8 (1) Hematuria Hematuria type: gross Qualified Code(s): R31.0 - Gross hematuria
[2024-04-20 14:00] VITALS: BP 133/72
--- NOTE | 2024-04-22 08:18 | Discharge Summary ---
Discharge Summary Date of Service April 20, 2024 Principal Dx & Hospital Course #1 = Principal Diagnosis (1) Hematuria: Occurred after Farias catheter placement. Infection +/- traumatic. Consult urology for clot evaluation Hematuria resolved with irrigation Appreciate input from Urology: Will stop antibiotics as Urine culture likely contamination. will keep catheter in place. (2) Acute UTI (urinary tract infection): Ceftriaxone 2g IV - history of severe 6 month c. diff therefore will start vancomycin 125mg PO QAM for prophylaxis which she should continue for the duration of antibiotics and 7 days afterwards Follow up urine culture (3) Acute retention of urine: (4) Complication of Farias catheter: (5) Hyponatremia: Normal saline @125ml/hr overnight. improved (6) Hypomagnesemia: Magnesium level 1.6 on admission replaced. (7) Acute blood loss anemia: Plan HTN - continue atenolol and losartan Anxiety - continue Xanax, he takes this relatively regularly 2-3 times a day and every morning Admission HPI Per Admitting Provider Trenton Adams is a 69-year-old male who presents to the ER due to blood clots in his catheter and therefore unable to pass urine. Initial incident occurred on April 14 when he was unable to pass urine and was noted to be in urine retention in the emergency room confirmed on CT. A Farias catheter was placed and urinalysis did not appear infected at that time. He was discharged from the emergency room. He returned on April 16 with urine leakage around the Farias catheter. This appeared to be from the placement of the sticker of the leg bag causing his penis to be pulled significantly to the left and irritating his urethra. The Farias was otherwise draining well and was not replaced. He returned 2 days later on April 18 with hematuria noted in his Farias catheter bag in addition to passage of a clots. Urine was sent for culture but the Farias catheter appeared to be draining well and he was not anemic therefore he was discharged from the emergency room. No antibiotics were given at this time h owever culture now appears to be growing gram-negative bacilli. He returns today due to increased amount of clots and lower abdominal pain with inability to pass urine through the Farias catheter. He notes having bilateral flank pain for the last couple weeks but appeared much better after the Farias catheter was inserted the first time, however this pain has been gradually returning since. He denies any fever, chills, dysuria. No NSAID use. He denies any significant prostate symptoms prior to urine retention episode requiring his Farias catheter. He took all his morning medications today. Discharge Exam Constitutional: WD/WN, vitals as above Respiratory: normal respiratory effort, lungs clear to auscultation Cardiovascular: RRR, no murmur, no edema Gastrointestinal (Abdomen): normal bowel sounds, soft, nontender, no hepatosplenomegaly Skin: no rashes, warm and dry Neurologic: moves all extremities and awake; not confused Psychiatric: A+Ox3, euthymic affect Discharge Plan Discharge Items Patient Disposition: Home - Self-Care Reason For Visit: ACUTE BLOOD LOSS ANEMIA, UTI, BLADDER CLOTS Discharge Diagnosis: bladder clots Activity: Resume your previous activity Non-emergency contact: Primary Care Provider Call non-emergency contact if: you have any medication questions Follow-up/Referrals: Luis Frerie [Primary Care Provider] - Diet: Regular Addtl Attending Provider Instructions: Followup with Urology as an outpatient. Pending Studies at Discharge: No Stand-Alone Forms: My [facility], Smoking Cessation Medications and DC Order Prescriptions: Continued atenolol 25 mg tablet 25 mg PO QAM losartan [Cozaar] 100 mg tablet 100 mg PO QAM ketoconazole 2 % cream 1 applic topical BID PRN (Reason: FLARE) Saccharomyces boulardii [Daily Probiotic (S. boulardii)] 250 mg capsule 250 mg PO QAM cholecalciferol (vitamin D3) 25 mcg (1,000 unit) capsule 25 mcg PO QAM alprazolam 1 mg tablet 1 mg PO TID PRN (Reason: Anxiety) omega 9-cxh-frq-fish oil [Fish Oil] 1,000 (120-180) mg Capsule 1 cap PO QAM zinc gluconate 50 mg Tablet 50 mg PO QAM magnesium 250 mg Tablet 250 mg PO QAM Aged Garlic 2 cap PO BID No Action docusate sodium [Colace] 100 mg capsule 100 mg PO DAILY tamsulosin 0.4 mg capsule 0.4 mg PO DAILY Qty: 30 2RF Discharge Orders: Discharge Order (Routine); Ordered 04/20/24 Ordered By: Jenaro Shepherd Admission Data Admit Date/Time: 04/19/24 16:30 Attending Provider: Jenaro Shepherd Admit Provider: Edwardo Sierra Primary Care Provider: Luis Freire Other Providers: Sukhdev Leigh; Edwardo Sierra Other Interventions: Discharge Summary Assessment (RN) Last Done: 04/20/24 13:59 Hospital Stay Data Consultations 04/19/24 15:06 Consult Urology Stat 04/19/24 15:28 ED Decision to Admit Stat Procedures Performed Operation Date: 04/19/24 15:50 Actual Procedures p Cystoscopy, Clot Evacuation, Fulguration(Not Applicable) - Sukhdev Leigh, Diagnostic Imagining Performed 04/19/24 12:44 CT abd pelvis wo con Stat Pending Results Patient Have Any Pending Studies at Discharge: No Discharge Instructions Given to Patient (Per Discharging Provider) Followup with Urology as an outpatient. Total Time Total Time Spent Total Time Spent (In Minutes): 35 Coding Level of Care Code 18755 INP/OBS DISCH >30 MIN Diagnoses Gross hematuria R31.0 Hematuria type: gross Acute UTI (urinary tract infection) N39.0 Acute retention of urine R33.8 Complication of Farias catheter T83.9XXA Hyponatremia E87.1 Hypomagnesemia E83.42 Acute blood loss anemia D62
== END 2024-04-20 14:25 | disposition home or self-care (01) | DRG 666 ==
LOC: ED 09:42 → 2S 16:30 → INTOOBSV 16:30 → SUATTDRO 16:30

== ENCOUNTER 2024-05-06 09:26 | Observation (INO) ==
--- NOTE | 2024-04-25 12:05 | Anesthesiology Consultation ---
Date of Service April 25, 2024 Assessment & Plan (1) Encounter for pre-operative examination: Chart Review Chart Review: Pending: Refer to Additional Notes / Consult section (please send 04/19 and 04/20 labs as well as note to PCP, Re: hyponatremia) and Patient NOT seen in Pre Admission Testing -BMP to be repeated AM of surgery Infectious Disease screening: Per PAT nursing assessment on 04/25/24, No known infectious disease contacts in past 10 days. No recent travel outside the country. Pt reports current sx of: 'congestion or runny nose, sore throat'; he was started on cephalexin 04/23/24 for 'ear infection'. Pt advised to call if he develops: cough, fever, chills, or if sx do not improve/resolve. History Surgery Operation Date: 05/06/24 12:50 Proposed Procedures p TURP (Transurethral Resection Prostate) - Sukhdev Leigh, DO Height/Weight Height: 5 ft 7 in Weight: 83.915 kg Allergies Allergy/AdvReac Type Severity Reaction Status Date / Time amoxicillin [From Augmentin] AdvReac Unknown PATIENT Verified 04/25/24 09:49 GETS C-DIFF aspirin AdvReac Unknown EARS RING Verified 04/25/24 09:49 clavulanic acid AdvReac Unknown PATIENT Verified 04/25/24 09:49 [From Augmentin] GETS C-DIFF NSAIDS (Non-Steroidal AdvReac Unknown EARS RING Verified 04/25/24 09:49 Anti-Inflamma DIURETICS AdvReac Unknown EARS RING Uncoded 04/25/24 09:49 HISTAMINES AdvReac Unknown EARS RING Uncoded 04/25/24 09:49 Medications Home Medications Medication Instructions Recorded Confirmed Last Taken Saccharomyces boulardii 250 mg 250 mg PO QAM 05/17/21 04/25/24 04/19/24 capsule (Daily Probiotic (S. boulardii)) atenolol 25 mg tablet 25 mg PO QAM 05/17/21 04/25/24 04/19/24 cholecalciferol (vitamin D3) 25 25 mcg PO QAM 05/17/21 04/25/24 04/19/24 mcg (1,000 unit) capsule ketoconazole 2 % topical cream 1 applic topical BID PRN FLARE 05/17/21 04/25/24 Unknown losartan 100 mg tablet (Cozaar) 100 mg PO QAM 05/17/21 04/25/24 04/19/24 Aged Garlic 2 cap PO BID 04/19/24 04/25/24 04/19/24 alprazolam 1 mg tablet 1 mg PO TID PRN Anxiety 04/19/24 04/25/24 04/19/24 AM magnesium 250 mg tablet 100 mg PO QAM 04/19/24 04/25/24 04/19/24 omega 9-iwe-ota-fish oil 1,000 mg 1 cap PO QAM 04/19/24 04/25/24 04/19/24 (120 mg-180 mg) capsule (Fish Oil) zinc gluconate 50 mg tablet 50 mg PO QAM 04/19/24 04/25/24 04/19/24 docusate sodium 100 mg capsule 100 mg PO DAILY 04/23/24 04/25/24 Unknown (Colace) tamsulosin 0.4 mg capsule 0.4 mg PO DAILY #30 caps 04/23/24 04/25/24 Unknown cephalexin 500 mg capsule 500 mg PO QAM ear infection 04/25/24 04/25/24 Unknown Past Medical History Medical History (Updated 04/25/24 @ 12:50 by Christina Longo PA-C) Abnormal echocardiogram LA dilation on 2021 ECHO (no clear etiology); follows with Cardiology; per note: "I am not sure about the significance of such a minor abnormality, especially in the absence of any significant clinical signs or symptoms" Anxiety BPH (benign prostatic hyperplasia) Ear infection started on cephalexin by PCP 04/23/24 Hearing loss History of recent hospitalization [facility] admission 04/19-04/20/2024 for hematuria; had cysto with clot evacuation 04/19 HTN (hypertension) Indwelling Farias catheter present Tinnitus Past Family History Family History Mother No pertinent family history Father No pertinent family history Past Surgical History Surgical History (Updated 04/25/24 @ 12:39 by Christina Longo PA-C) H/O umbilical hernia repair History of anal fistulotomy History of cystoscopy cysto, clot evacuation 04/19/24: LMA#5 History of open reduction and internal fixation (ORIF) procedure b/l ankle Hx of colonoscopy S/P appendectomy S/P hernia repair S/P tonsillectomy Social History Smoking Status: Former smoker Do You Dip or Chew Tobacco: No Smoking End Date: quit >20 yrs ago Hx Alcohol Use: Yes (has not been drinking daily for the "last few weeks") Alcohol type: beer alcohol intake frequency: 3 or more drinks per day Hx Substance Use: No substance use type: does not use Lab Results Anesthesia Preop Results Results Anesthesia Widget: WBC 5.52 K/ul (4.8-10.8) 04/20/24 Hgb 12.8 g/dl (14.0-18.0) L 04/20/24 Hct 37.0 % (42.0-52.0) L 04/20/24 Plt 292 K/uL (130-400) 04/20/24 Na 130 mmol/L (136-145) L 04/20/24 K 4.5 mmol/L (3.5-5.1) 04/20/24 Cl 97 mmol/L (98-107) L 04/20/24 CO2 25 mmol/L (21-32) 04/20/24 BUN 8 mg/dl (6-23) 04/20/24 Creat 0.70 mg/dl (0.6-1.4) 04/20/24 Glucose Level 127 mg/dl (70-99(Fasting)) H 04/20/24 POC Glucose 111 mg/dl (70-99) H 04/19/24 Urine Color See Comment 04/18/24 Urine Appearance Slightly Cloudy (Clear) 04/18/24 Urine pH Not Reportable 04/18/24 Urine Specific [place] 1.006 (1.000-1.030) 04/18/24 Urine Protein Not Reportable 04/18/24 Urine Glucose (UA) Not Reportable 04/18/24 Urine Ketones Not Reportable 04/18/24 Urine Blood Not Reportable 04/18/24 Urine Nitrite Not Reportable 04/18/24 Urine Bilirubin Not Reportable 04/18/24 Urine Urobilinogen Not Reportable 04/18/24 Urine Leukocyte Esterase Not Reportable 04/18/24 Testing Electrocardiogram Date: 04/14/24 Findings: + SB @ (58bpm) Chest X-Ray Date: 04/23/24 Findings: + NAD Atherosclerosis of the aorta Echocardiogram Date: 08/03/23 EF: ~55% RWMA: + none Valvular Disease: + no significant valvular disease Gr I DD. Left atrium is normal in size. Right atrium is normal in size Other Testing Abd/Pelvis CT 04/19/24: 1. Farias catheter is noted within the distended hemorrhagic debris filled urinar y bladder. Associated prostatomegaly. 2. Nonobstructing bilateral nephrolithiasis. No hydronephrosis. 3. No bowel obstruction or bowel wall thickening. 4. Cholelithiasis.
[2024-05-06] MEDS ORDERED: ONDANSETRON INJ 2 MG/ML 2 ML VIAL IV PRN (10:10)
[2024-05-06] MEDS ORDERED: ePHEDrine sulfate 50 MG/ML AMP IV PRN (10:10)
[2024-05-06] MEDS ORDERED: PROMETHAZINE HCL 6.25 MG in SODIUM CHLORIDE 0.9% 50 ML IV PRN (10:10)
[2024-05-06] MEDS ORDERED: ATROPINE SULFATE 0.1 MG/ML 10ML SYR IV PRN (10:10)
[2024-05-06] MEDS: LR 15ML/HR IV SCH (10:12)
[2024-05-06 10:17] LABS: BUN Creatinine Ratio 10.1 (10-20); Calcium 10.1 mg/dl (8.6-10.3); Creatinine Clr Calc Pharmacy 91.4 ml/min; Potassium 3.9 mmol/L (3.5-5.1)
[2024-05-06] MEDS ORDERED: MoRPHine SULFATE 2 MG/ML CARP IV PRN (10:18)
[2024-05-06] MEDS ORDERED: PHENAZOPYRIDINE HCL 200 MG TAB PO PRN (10:18)
[2024-05-06] MEDS ORDERED: oxyBUTYnin chloride 5 MG TAB PO PRN (10:18)
--- NOTE | 2024-05-06 10:18 | History & Physical Bridge Note ---
Date of Service May 06, 2024 History & Physical Bridge Note I have examined the patient, reviewed the History & Physical and in the interval since the performance of the History & Physical I have noted the following changes of clinical significance: no changes noted
[2024-05-06] MEDS ORDERED: fentaNYL citrate PF 100 MCG/2 ML VIAL ONE (10:24)
[2024-05-06] MEDS ORDERED: MIDAZOLAM HCL 1 MG/ML 2ML VIAL ONE (10:24)
[2024-05-06] MEDS ORDERED: PROPOFOL IV EMULSION 10 MG/ML 20 ML VIAL IV ONE ×2 (10:24→10:26)
[2024-05-06] MEDS ORDERED: ONDANSETRON INJ 2 MG/ML 2 ML VIAL ONE (10:24)
[2024-05-06] MEDS ORDERED: DEXAMETHASONE SOD INJ 4 MG/ML VIAL ONE (10:24)
[2024-05-06] MEDS: ceFAZolin 2000MG 2,000 MG/15 ML SYR IV SCH ×2 (10:55→11:14)
[2024-05-06] MEDS ORDERED: ePHEDrine sulfate 50 MG/ML AMP ONE (11:09)
--- NOTE | 2024-05-06 12:36 | Operative Report ---
PG Post Operative Report Pre & Post Diagnosis Operation Date: 05/06/24 11:10 Pre-Op Diagnosis: Benign Prostatic Hyperlasia with Urinary Obstruction Post-Op Diagnosis: Benign Prostatic Hyperlasia with Urinary Obstruction I identified the patient and participated in the time-out.: Yes Procedure Operation Date: 05/06/24 11:10 Actual Procedures p Transurethral Resection of Prostate, fulguration of prostatic varicosities. - Sukhdev Leigh, Surgeon Sukhdev Leigh, II, DO Diesel Din[employer] Engineer None Estimated Blood Loss 10 Findings Consistent with Post-Op Diagnosis Extremely Large Prostate with obstruction. Specimens Prostate adenoma. Drains [address] C[address]ter Anesthesia Type General Complications none Disposition Disposition: Recovery Room Indications Patient with obstruction due to prostate enlargement. Risks and benefits discussed at length. Description of Procedure Patient was consented and brought back to the operating room. Patient was placed under anesthesia in the supine position and moved to the dorsal lithotomy position. Patient was prepped and draped in the regular sterile fashion. A time out was completed. A 30degree Cystoscope was placed into the bladder and the entire bladder was examined. The UO's were identified as well as the bladder neck, trigone, dome, and the other important landmarks. The prostatic urethra and large lobes/adenoma was assessed and the veru and bladder neck identified and area/size was assessed. The resection scope was placed and the prostate bipolar loop was selected. Starting at the 5 and 7 o'clock positions, a channel was created from bladder neck to the veru. The median lobe was extremely large. Extensive resection. Large varicosities were fulgurated. The lateral lobes were then resected. Extensive tissue was resected. The Specimen was removed and sent for analysis. The resection bed and any bleed ing areas were fulgurated/cauterized and the entire area inspected. All bleeding was controlled. The bladder was inspected a final time. The bladder was emptied and irrigated. All specimen and debris was removed. The scope was removed with the bladder partially full. A catheter was placed and balloon elevated. This was easily irrigated. The patient was cleaned, aroused from anesthesia, and transferred to the pacu in stable condition having tolerated the procedure well with no complications. I was present and participated in all aspects of the procedure. The patient will be monitored in the PACU until transferred. Plan to monitor overnight. Catheter for 7-10 days and post op in office with removal to discuss pathology. I attest to the content of the Intraoperative Record and any orders documented therein. Any exceptions are noted below.
[2024-05-06] MEDS: fentaNYL citrate PF 100 MCG/2 ML VIAL IV PRN (12:55)
[2024-05-06] MEDS: fentaNYL citrate PF 100 MCG/2 ML VIAL ONE ×2 (13:13)
--- NOTE | 2024-05-06 13:58 | Anesthesiology Progress Note ---
Date of Service May 06, 2024 Anesthesia Post Procedure Vital Signs Vital Signs: Temp Pulse Resp BP Pulse Ox O2 Del Method O2 Flow Rate 05/06/24 13:55 63 18 145/75 H 98 Room Air 05/06/24 13:45 59 L 12 134/80 98 Room Air 05/06/24 13:35 36.4 C L 64 16 132/75 97 Room Air 05/06/24 13:25 60 16 134/70 94 Room Air 05/06/24 13:15 63 16 117/63 99 Room Air 05/06/24 13:05 67 20 132/71 94 Room Air 05/06/24 12:55 64 12 133/79 95 Room Air 05/06/24 12:45 66 14 154/79 H 97 Oxymask 3 05/06/24 12:35 36.1 C L 70 16 139/81 99 Oxymask 6 05/06/24 10:03 36.6 C 67 18 174/91 H 100 Room Air Pain Intensity Penis: Pain Intensity: 4 Transfer of Care Handoff Completed per policy Notes Mental Status: alert / awake / arousable Patient Amnestic to Procedure: Yes Nausea / Vomiting: adequately controlled Pain: adequately controlled Airway Patency, RR, SpO2: stable & adequate BP & HR: stable & adequate Hydration State: stable & adequate Anesthetic Complications: no major complications apparent
[2024-05-06] MEDS: SODIUM CHLORIDE 0.9% 1,000 ML IV SCH (14:26)
[2024-05-06] MEDS: CHERRY SYRUP 5 ML UDP PO SCH (15:48)
[2024-05-06] MEDS: VANCOMYCIN HCL 125 MG/2.5ML SOLN PO SCH (15:49)
[2024-05-06] MEDS: oxyCODONE/ACETAMINOPHEN 5mg/325mg TAB PO PRN (17:10)
[2024-05-06] MEDS: DOCUSATE SODIUM 100 MG CAP PO SCH (20:48)
[2024-05-06 20:56] VITALS: RESP 18
[2024-05-06] MEDS: VANCOMYCIN HCL 125 MG/2.5ML SOLN PO STA (21:36)
[2024-05-06] MEDS: CHERRY SYRUP 5 ML UDP PO STA (21:36)
[2024-05-06] MEDS: ALPRAZolam 0.5 MG TABLET PO PRN (21:51)
--- NOTE | 2024-05-06 22:00 | Hospitalist Consultation ---
Date of Consultation May 06, 2024 Assessment & Plan (1) Status post transurethral resection of prostate: Pain / VTE / bowel management per primary urology team Will defer restarting tamsulosin/finasteride to urology if felt still to be necessary post operatively Recommend vancomycin 125mg PO daily while on antibiotics and for 7 days afterwards - discussed extensively with patient this is minimally absorbed and not concerning at prophylaxis doses for hearing loss (2) HTN (hypertension): Continue atenolol and losartan (3) Anxiety: Continue his usual Xanax 1mg TID PRN - takes this routinely in the mornings and only occasionally during the day (4) Hearing loss: (5) BPH w urinary obs/LUTS: Plan Thank you for the consult, we will continue to follow the patient with you History of Present Illness Reason for Consultation: Hx CDiff, HTN, Retention Attending Physician: Sukhdev Leigh, II, DO History of Present Illness Trenton Adams is a 69 year old male POD#0 Transurethral Resection of Prostate, fulguration of prostatic varicosities performed by Dr Leigh earlier today. Discussed difference between vancomycin PO and IV. Otherwise no questions or concerns from the patient. Took his atenolol this morning but did not take his losartan as advised. Allergies Allergy/AdvReac Type Severity Reaction Status Date / Time amoxicillin [From Augmentin] AdvReac Unknown PATIENT Verified 05/06/24 09:53 GETS C-DIFF aspirin AdvReac Unknown EARS RING Verified 05/06/24 09:53 clavulanic acid AdvReac Unknown PATIENT Verified 05/06/24 09:53 [From Augmentin] GETS C-DIFF NSAIDS (Non-Steroidal AdvReac Unknown EARS RING Verified 05/06/24 09:53 Anti-Inflamma DIURETICS AdvReac Unknown EARS RING Uncoded 05/06/24 09:53 HISTAMINES AdvReac Unknown EARS RING Uncoded 05/06/24 09:53 Home Medications Medication Instructions Recorded Confirmed Type Saccharomyces boulardii 250 mg 250 mg PO QAM 05/17/21 05/06/24 History capsule (Daily Probiotic (S. boulardii)) atenolol 25 mg tablet 25 mg PO QAM 05/17/21 05/06/24 History cholecalciferol (vitamin D3) 25 25 mcg PO QAM 05/17/21 05/06/24 History mcg (1,000 unit) capsule ketoconazole 2 % topical cream 1 applic topical BID PRN FLARE 05/17/21 05/06/24 History losartan 100 mg tablet (Cozaar) 100 mg PO QAM 05/17/21 05/06/24 History Aged Garlic 2 cap PO BID 04/19/24 05/06/24 History alprazolam 1 mg tablet 1 mg PO TID PRN Anxiety 04/19/24 05/06/24 History magnesium 250 mg tablet 100 mg PO QAM 04/19/24 05/06/24 History omega 8-iwi-jhj-fish oil 1,000 mg 1 cap PO QAM 04/19/24 05/06/24 History (120 mg-180 mg) capsule (Fish Oil) zinc gluconate 50 mg tablet 50 mg PO QAM 04/19/24 05/06/24 History docusate sodium 100 mg capsule 100 mg PO DAILY 04/23/24 05/06/24 History (Colace) tamsulosin 0.4 mg capsule 0.4 mg PO DAILY #30 caps 04/23/24 05/06/24 Rx oxybutynin chloride 5 mg tablet 5 mg PO DAILY #30 tabs 04/26/24 05/06/24 Rx Patient History Medical History Anxiety History of recent hospitalization [facility] admission 04/19-04/20/2024 for hematuria; had cysto with clot evacuation 04/19 Tinnitus Hearing loss HTN (hypertension) BPH (benign prostatic hyperplasia) Abnormal echocardiogram LA dilation on 2021 ECHO (no clear etiology); follows with Cardiology; per note: "I am not sure about the significance of such a minor abnormality, especially in the absence of any significant clinical signs or symptoms" Ear infection started on cephalexin by PCP 04/23/24 Indwelling Farias catheter present Surgical History History of cystoscopy cysto, clot evacuation 04/19/24: LMA#5 History of anal fistulotomy Hx of colonoscopy History of open reduction and internal fixation (ORIF) procedure b/l ankle S/P tonsillectomy H/O umbilical hernia repair S/P appendectomy S/P hernia repair Family History Mother No pertinent family history Father No pertinent family history Social History Smoking Status: Never smoker Tobacco Type: Cigarettes Second Hand Exposure: No; Do You Dip or Chew Tobacco: No; Hx Alcohol Use: Yes (has not been drinking daily for the "last few weeks") Alcohol type: beer Hx Substance Use: No Preferred Language: [place] Communication Ability: Effective Superintendent Car Construction Required: No Beliefs That Will Affect Care: None Current Living Situation: Spouse and Parent Feels Safe at Home: Yes Assistive Devices: Glasses and Hearing Aid - Left Review of Systems Review of Systems: All systems reviewed & are unremarkable except as noted in HPI & below Physical Exam Constitutional: WD/WN, vitals as above Respiratory: normal respiratory effort, lungs clear to auscultation Cardiovascular: RRR, no murmur, no edema Gastrointestinal (Abdomen): normal bowel sounds, soft, nontender, no hepatosplenomegaly Skin: no rashes, warm and dry Neurologic: moves all extremities and awake; not confused Psychiatric: A+Ox3, euthymic affect Results & Data Results & Data Vital Signs (Past 12 Hours) Vital Signs Temp Pulse Pulse Resp BP Pulse Ox O2 Del Method 05/06/24 20:55 36.5 C 65 18 159/91 H 100 Room Air 05/06/24 17:06 36.4 C L 73 17 157/85 H 100 Room Air 05/06/24 16:05 36.4 C L 67 17 134/83 100 Room Air 05/06/24 15:05 36.7 C 60 17 153/80 H 98 Room Air 05/06/24 14:35 67 17 145/82 H 99 Room Air 05/06/24 14:05 36.3 C L 64 17 148/78 H 99 Room Air 05/06/24 13:55 63 18 145/75 H 98 Room Air 05/06/24 13:45 59 L 12 134/80 98 Room Air 05/06/24 13:35 36.4 C L 64 16 132/75 97 Room Air 05/06/24 13:25 60 16 134/70 94 Room Air 05/06/24 13:15 63 16 117/63 99 Room Air 05/06/24 13:05 67 20 132/71 94 Room Air 05/06/24 12:55 64 12 133/79 95 Room Air 05/06/24 12:45 66 14 154/79 H 97 Oxymask 05/06/24 12:35 36.1 C L 70 16 139/81 99 Oxymask 05/06/24 10:03 36.6 C 67 18 174/91 H 100 Room Air O2 Flow Rate 05/06/24 20:55 05/06/24 17:06 05/06/24 16:05 05/06/24 15:05 05/06/24 14:35 05/06/24 14:05 05/06/24 13:55 05/06/24 13:45 05/06/24 13:35 05/06/24 13:25 05/06/24 13:15 05/06/24 13:05 05/06/24 12:55 05/06/24 12:45 3 05/06/24 12:35 6 05/06/24 10:03 PG Care Time/CCT Total # of Minutes Spent Total Time Spent with Patient: Total time spent is greater than 50% in coordination of care (as documented) at patient's floor/unit and/or counseling patient: Coding Level of Care Code 88957 IN/OBS CONSULT LVL 3,45M Diagnoses Status post transurethral resection of prostate Z90.79 HTN (hypertension) I10 Anxiety F41.9 Hearing loss H91.90 BPH w urinary obs/LUTS N40.1; N13.8
[2024-05-07 07:34] VITALS: TEMP 97.9; O2SAT 97
[2024-05-07] MEDS: ATENOLOL 25 MG TABLET PO SCH (07:41)
[2024-05-07] MEDS: LOSARTAN POTASSIUM 50 MG TAB PO SCH (07:41)
[2024-05-07] MEDS: VANCOMYCIN HCL 125 MG/2.5ML SOLN PO SCH (07:42)
[2024-05-07] MEDS: CHERRY SYRUP 5 ML UDP PO SCH (07:42)
[2024-05-07 08:51] LABS: Basophils # (auto) 0.01 K/uL (0.00-0.20); Basophils % (auto) 0.2 %; Eosinophils # (auto) 0.01 K/uL (0.00-0.50); Eosinophils % (auto) 0.2 %; Hematocrit (blood only) 30.4 % (42.0-52.0); Hemoglobin 10.8 g/dl (14.0-18.0); Immature Granulocytes # (auto) 0.02 K/uL (0.01-0.20); Immature Granulocytes % (auto) 0.3 %; Lymphocytes # (auto) 1.19 K/uL (1.20-3.40); Lymphocytes % (auto) 19.1 %; Mean Corpuscular Hemoglobin 33.6 pg (25.0-34.0); Mean Corpuscular Hgb Conc 35.5 g/dL (32.0-36.0); Mean Corpuscular Volume 94.7 fL (80.0-100.0); Mean Platelet Volume 8.6 fL (9.4-12.4); Monocytes # (auto) 0.47 K/uL (0.11-0.59); Monocytes % (auto) 7.5 %; Neutrophils # (auto) 4.54 K/uL (1.40-6.50); Neutrophils % (auto) 72.7 %; Platelet Count 428 K/uL (130-400); RDW Coefficient of Variation 12.7 % (11.5-14.5); RDW Standard Deviation 44.3 fL (36.4-46.3); Red Blood Count 3.21 M/uL (4.70-6.10); White Blood Count 6.24 K/ul (4.8-10.8)
[2024-05-07 09:02] LABS: BUN Creatinine Ratio 7.1 (10-20); Calcium 8.7 mg/dl (8.6-10.3); Creatinine Clr Calc Pharmacy 103.2 ml/min; Magnesium 1.6 mg/dl (1.7-2.4); Potassium 3.4 mmol/L (3.5-5.1)
--- NOTE | 2024-05-07 10:05 | Urology Progress Note ---
Date of Service May 07, 2024 Assessment & Plan (1) BPH w urinary obs/LUTS: (2) Status post transurethral resection of prostate: Plan: - Pt POD#1 s/p TURP with Dr. Leigh - Doing well, progressing as expected - Afebrile, lab work reviewed - creatinine 0.70, WBC 6.24, Hgb 10.8 - Tolerating PO diet - 3 way Farias catheter intact, patent and draining clear urine with minimal pink with CBI on slow - CBI clamped @0915, nursing aware - will reassess later this AM and discontinue CBI if urine remains appropriate - Maintain Farias catheter upon discharge - Anticipate home with Farias catheter later today presuming urine appropriate and he continues to progress as expected - Expected clinical course reviewed, all questions answered - Will arrange outpatient follow-up with our service for voiding trial Patient reassessed and urine remains clear. Orders placed to discontinue CBI set up and clamp irrigation port. Patient is ready for discharge with Farias catheterorders placed. Admission and Anticipated Discharge Date Admission Date: May 06, 2024 Subjective Patient seen and examined at bedside. He is awake and sitting up in bed. No acute issues overnight, although reports he did not sleep well. Denies pain. Farias draining clear urine with minimal pink tinge with CBI on slow. CBI clamped during exam. RN aware. Denies nausea, vomiting, fever or chills. Review of Systems Constitutional: as per Subjective / HPI Gastrointestinal: as per Subjective / HPI Genitourinary: + as per Subjective / HPI Physical Exam Constitutional: well developed and well nourished; no acute distress Respiratory: normal respiratory effort; no respiratory distress and no labored breathing Gastrointestinal (Abdomen): Inspection/Auscultation: abdomen normal to inspection Musculoskeletal: Head/Neck/Chest: normocephalic Neurologic: moves all extremities and awake Psychiatric: Orientation: alert and oriented x 3 Genitourinary: Farias patent and draining clear urine with minimal pink tinge with CBI on slow. CBI clamped at 0915. Results & Data Vital Signs (Past 12 Hours) Vital Signs Temp Pulse Resp BP Pulse Ox O2 Del Method 05/07/24 07:33 36.6 C 75 18 175/80 H 97 Room Air PG Care Time/CCT Total # of Minutes Spent Total Time Spent with Patient: Total time spent is greater than 50% in coordination of care (as documented) at patient's floor/unit and/or counseling patient: Coding Level of Care Code None Diagnoses BPH w urinary obs/LUTS N40.1; N13.8 Status post transurethral resection of prostate Z90.79
[2024-05-07] MEDS: POTASSIUM CHLORIDE CRTAB 20 MEQ TABCR PO STA (10:56)
[2024-05-07] MEDS: MAGNESIUM OXIDE 400 MG TAB PO SCH (10:56)
[2024-05-07 10:58] VITALS: BP 153/81
[2024-05-07 11:02] VITALS: PULSE 63
--- NOTE | 2024-05-07 13:31 | Discharge Summary ---
Date of Service May 07, 2024 Admission HPI Per Admitting Provider Patient with BPH with obstruction here for transurethral resection of prostate. Principal Diagnosis BPH with urinary obstruction Discharge Exam Constitutional well developed and well nourished; no acute distress Respiratory normal respiratory effort; no respiratory distress and no labored breathing Gastrointestinal (Abdomen) Inspection/Auscultation: abdomen normal to inspection Musculoskeletal Head/Neck/Chest: normocephalic Neurologic moves all extremities and awake Psychiatric Orientation: alert and oriented x 3 Genitourinary Farias intact and draining clear urine with minimal pink tinge with CBI on slow, clamped at bedside. Patient reassessed and urine remains clear with minimal pink tinge with CBI clamped. Discharge Data Allergies Allergy/AdvReac Type Severity Reaction Status Date / Time amoxicillin [From Augmentin] AdvReac Unknown PATIENT Verified 05/06/24 09:53 GETS C-DIFF aspirin AdvReac Unknown EARS RING Verified 05/06/24 09:53 clavulanic acid AdvReac Unknown PATIENT Verified 05/06/24 09:53 [From Augmentin] GETS C-DIFF NSAIDS (Non-Steroidal AdvReac Unknown EARS RING Verified 05/06/24 09:53 Anti-Inflamma DIURETICS AdvReac Unknown EARS RING Uncoded 05/06/24 09:53 HISTAMINES AdvReac Unknown EARS RING Uncoded 05/06/24 09:53 Consultations 05/06/24 10:23 Consult Hospitalist Routine Procedures Performed Operation Date: 05/06/24 11:10 Actual Procedures p Transurethral Resection Prostate - Sukhdev Leigh, DO Hospital Course (1) BPH w urinary obs/LUTS: (2) Status post transurethral resection of prostate: - Pt POD#1 s/p TURP with Dr. Leigh - Doing well, progressing as expected - Afebrile, lab work reviewed - creatinine 0.70, WBC 6.24, Hgb 10.8 - Tolerating PO diet - 3 way Farias catheter intact, patent and draining clear urine with minimal pink with CBI on slow - CBI clamped @0915, nursing aware - will reassess later this AM and discontinue CBI if urine remains appropriate - Maintain Farias catheter upon discharge - Anticipate home with Farias catheter later today presuming urine appropriate and he continues to progress as expected - Expected clinical course reviewed, all questions answered - Will arrange outpatient follow-up with our service for voiding trial Patient reassessed and urine remains clear. Orders placed to discontinue CBI set up and clamp irrigation port. Patient is ready for discharge with Farias catheterorders placed. Total Time Total Time Spent Total Time Spent (In Minutes): 29 Discharge Plan Discharge Items Patient Disposition: Home - Self-Care Reason For Visit: Benign Prostatic Hyperlasia with Urinary Obstructi Discharge Diagnosis: Benign prostatic hyperplasia with urinary obstruction Activity: Per Instructions section Lifting: No more than 25 pounds Bathing Comment: Okay to shower after discharge, no tub bath or soaking Sexual Activity: Wait until after follow-up appointment Exercise/Sports: Wait until after follow-up appointment Driving/Machine Use: No driving while taking prescription pain medication Non-emergency contact: Surgeon and Urologist Call non-emergency contact if: your pain is not controlled, you have a fever and your temperature is above 101 Follow-up/Referrals: Sukhdev Leigh DO [Physician] - 05/15/24 8:00 am Luis Freire [Primary Care Provider] - Diet: Regular Addtl Attending Provider Instructions: Please take all medications as prescribed and keep all follow-ups as scheduled. Please call our office at [phone] with any questions, concerns or need to reschedule appointments for any reason. We are happy to assist you. Tips for your recovery at home: Dont be alarmed by brownish or reddish blood or clots in your urine. This is a result of the procedure. This may occur off and on for weeks to months after the procedure but should continue to improve. Drink plenty of fluids during the day (enough to keep your urine very light colored). This will help keep a healthy flow of urine. Do not lift >25 lbs until your followup Avoid constipation. Please use a stool softener (Colace) for the first two weeks after your procedure Be sure to finish the antibiotics as prescribed. If you go home with a catheter, please wash tubing where it enters your body twice daily with mild soap (Dove or Dial). Once your catheter is removed, expect some blood in your urine and some burning when you urinate. You should have an appointment to have this removed, if you do not please call our office to arrange. Pending Studies at Discharge: Yes (pathology) Stand-Alone Forms: My [facility] [employer], Smoking Cessation Medications and DC Order Prescriptions: New cephalexin 500 mg capsule 500 mg PO BID 7 Days Qty: 14 0RF Continued oxybutynin chloride 5 mg tablet 5 mg PO DAILY Qty: 30 0RF atenolol 25 mg tablet 25 mg PO QAM losartan [Cozaar] 100 mg tablet 100 mg PO QAM ketoconazole 2 % cream 1 applic topical BID PRN (Reason: FLARE) Saccharomyces boulardii [Daily Probiotic (S. boulardii)] 250 mg capsule 250 mg PO QAM cholecalciferol (vitamin D3) 25 mcg (1,000 unit) capsule 25 mcg PO QAM docusate sodium [Colace] 100 mg capsule 100 mg PO DAILY tamsulosin 0.4 mg capsule 0.4 mg PO DAILY Qty: 30 2RF alprazolam 1 mg tablet 1 mg PO TID PRN (Reason: Anxiety) omega 0-nei-aum-fish oil [Fish Oil] 1,000 (120-180) mg Capsule 1 cap PO QAM zinc gluconate 50 mg Tablet 50 mg PO QAM magnesium 250 mg Tablet 100 mg PO QAM Aged Garlic 2 cap PO BID Discharge Orders: Discharge Order (Routine); Ordered 05/07/24 Ordered By: Yusra Freeman Admission Data Admit Date/Time: 05/06/24 10:18 Attending Provider: Sukhdev Leigh Admit Provider: Sukhdev Leigh Primary Care Provider: Luis Freire Other Providers: Gelacio Boyer Other Interventions: Discharge Summary Assessment (RN) Last Done: 05/07/24 11:02 Coding Level of Care Code 83775 IN/OBS DISCH 30 MIN/LESS Diagnoses BPH w urinary obs/LUTS N40.1; N13.8 Status post transurethral resection of prostate Z90.79
== END 2024-05-07 11:11 | disposition home or self-care (01) ==
LOC: ASU 09:26 → 3W 09:26